=== PATIENT | female | born 1950 | race Caucasian/White ===

== ENCOUNTER 2016-11-21 10:14 | Outpatient (CLI) | payer MEDICARE, BC | END 2016-11-21 10:15 | disposition home or self-care (01) | DX: M19.072 Primary osteoarthritis, left ankle and foot (principal) ==

== ENCOUNTER 2018-04-09 09:47 | Outpatient (CLI) | payer MEDICARE, BC ==
--- NOTE | 2018-04-09 11:08 | XRAY Report ---
Reason: PAIN HX TRAUMA Procedure Date: 04/09/2018 Accession Number: [id number] / [id number] Procedure: XR - Foot 3 View LT CPT Code: FULL RESULT: EXAM: LEFT FOOT RADIOGRAPHY EXAM DATE: 04/09/2018 10:32 AM. CLINICAL HISTORY: Pain, history of trauma. COMPARISON: FOOT 3 VIEW LT 11/21/2016 10:28 AM. TECHNIQUE: 3 views. FINDINGS: Stable appearance of the fifth ray status post fifth transmetatarsal amputation. No fracture or dislocation is identified. Mild posterior and inferior calcaneal enthesopathy is again seen. Mild midfoot degenerative changes have not significantly changed compared to 2014. IMPRESSION: No fracture or dislocation. RADIA
== END 2018-04-09 09:48 | disposition home or self-care (01) ==
LOC: DI 09:47
PROVIDERS: ATTEND Physician Assistant
DX: M79.672 Pain in left foot (principal)

== ENCOUNTER 2018-08-28 08:04 | Outpatient (CLI) | payer MEDICARE, BC | END 2018-08-28 08:05 | disposition home or self-care (01) | LOC: DI 08:04 | PROVIDERS: ATTEND Physician Assistant | DX: Z01.810 Encounter for preprocedural cardiovascular examination (principal); R01.1 Cardiac murmur, unspecified; I51.7 Cardiomegaly | CPT/HCPCS: 93005; 93306 ==

== ENCOUNTER 2018-11-14 20:54 | Outpatient (CLI) | payer MEDICARE, BC | END 2018-11-14 20:55 | disposition EMS.NT | LOC: EMS 20:54 | PROVIDERS: ATTEND Surgery | DX: R44.8 Other symptoms and signs involving general sensations and perceptions (principal) ==

== ENCOUNTER 2019-04-03 08:24 | Outpatient (CLI) | payer MEDICARE, BC ==
--- NOTE | 2019-04-03 11:02 | XRAY Report ---
Reason: PAINFUL L FOOT AND 2ND MP JOINT Procedure Date: 04/03/2019 Accession Number: [id number] / [id number] Procedure: XR - Foot 3 View LT CPT Code: FULL RESULT: EXAM: LEFT FOOT RADIOGRAPHY EXAM DATE: 04/03/2019 08:43 AM. CLINICAL HISTORY: Painful left foot and 2nd MP joint. COMPARISON: FOOT 3 VIEW LT 04/09/2018. TECHNIQUE: 3 views. FINDINGS: Bones: Previous amputation of the fifth ray distal to the distal diaphysis of the fifth metatarsal. Stable appearance of the remnant bone. No acute bony processes detected, including the second metatarsophalangeal articulation. Joints: Stable mild to moderate narrowing of the articulations of the mid foot, and the first metatarsophalangeal articulation. Soft Tissues: Normal. No soft tissue swelling. No subcutaneous radiopaque foreign bodies. IMPRESSION: No acute bony processes identified. RADIA
== END 2019-04-03 08:25 | disposition home or self-care (01) ==
LOC: DI 08:24
PROVIDERS: ATTEND Podiatrist
DX: M79.672 Pain in left foot (principal)

== ENCOUNTER 2020-03-03 08:46 | Outpatient (CLI) | payer MEDICARE, BC ==
--- NOTE | 2020-03-03 09:15 | XRAY Report ---
PROCEDURE: Hip w/Pelvis 2-3V LT INDICATIONS: PAIN IN LEFT HIP TECHNIQUE: AP pelvis with lateral view(s) of the bilateral hip(s). COMPARISON: None. FINDINGS: Bones: No fractures or dislocations. Pelvic ring appears intact. No suspicious bony lesions. Ther e is symmetric moderate degenerative joint disease in hips and sacroiliac joints bilaterally. Soft tissues: The visualized bowel gas pattern is normal. Vascular calcifications consistent with at herosclerosis.. IMPRESSION: 1. No fracture or dislocation. 2. 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 Reviewed by: Mirna Bear MD on 03/03/2020 9:14 AM PDT Approved by: Mirna Bear MD on 03/03/2020 9:14 AM PDT Station ID: [id number]
== END 2020-03-03 08:47 | disposition home or self-care (01) ==
LOC: DI.S 08:46
PROVIDERS: ATTEND Nurse Practitioner Family
DX: M16.0 Bilateral primary osteoarthritis of hip (principal); M47.818 Spondylosis without myelopathy or radiculopathy, sacral and sacrococcygeal region

== ENCOUNTER 2022-04-15 23:54 | Outpatient (CLI) | payer MEDICARE, BC | END 2022-04-15 23:55 | disposition EMS.NT | LOC: EMS 23:54 | DX: M54.50 Low back pain, unspecified (principal); M79.672 Pain in left foot; M79.671 Pain in right foot; I10 Essential (primary) hypertension ==

== ENCOUNTER 2022-05-04 14:56 | Outpatient (CLI) | payer MEDICARE, BC ==
--- NOTE | 2022-05-04 17:27 | XRAY Report ---
PROCEDURE: Foot 3 View LT INDICATIONS: ANKLE/FOOT XRAY TECHNIQUE: 3 views of the foot were acquired. COMPARISON: Same day left ankle radiographs. Left foot radiographs 04/03/2019. FINDINGS: Bones: Prior distal radial resection of the fifth digit. No fractures or dislocations. Moderate degen erative change. Small calcaneal spurs. No suspicious bony lesions. Soft tissues: No tibiotalar joint effusion. Achilles tendon appears normal. IMPRESSION: No fracture identified. Reviewed by: Jack Reyes MD on 05/04/2022 5:26 PM PDT Approved by: Jack Reyes MD on 05/04/2022 5:26 PM PDT Station ID: [id number]
--- NOTE | 2022-05-04 17:28 | XRAY Report ---
PROCEDURE: Ankle 3 View LT INDICATIONS: Left Ankle Pain TECHNIQUE: 3 views of the ankle were acquired. COMPARISON: Same day left foot radiographs. FINDINGS: Bones: No fractures or dislocations. Ankle mortise is normally aligned. No suspicious bony lesions . Small calcaneal spurs. Soft tissues: No tibiotalar joint effusion. Achilles tendon appears normal. IMPRESSION: No fracture identified. Consider follow-up radiographs in 10-14 days. Reviewed by: Jack Reyes MD on 05/04/2022 5:26 PM PDT Approved by: Jack Reyes MD on 05/04/2022 5:26 PM PDT Station ID: [id number]
== END 2022-05-04 14:57 | disposition home or self-care (01) ==
LOC: DI 14:56
PROVIDERS: ATTEND Podiatrist
DX: M79.672 Pain in left foot (principal); M25.572 Pain in left ankle and joints of left foot

== ENCOUNTER 2022-05-13 19:54 | Outpatient (CLI) | payer MEDICARE, BC | END 2022-05-13 19:55 | disposition critical access hospital (66) | LOC: EMS 19:54 | DX: M54.50 Low back pain, unspecified (principal); W11.XXXA Fall on and from ladder, initial encounter; Y92.009 Unspecified place in unspecified non-institutional (private) residence as the place of occurrence of the external cause; R42 Dizziness and giddiness; I10 Essential (primary) hypertension; M79.671 Pain in right foot; R00.2 Palpitations; R26.81 Unsteadiness on feet | CPT/HCPCS: A0425; A0429 ==

== ENCOUNTER 2022-05-13 21:00 | Emergency (ER) | payer MEDICARE, BC ==
--- NOTE | 2022-05-13 21:01 | ED Physician Documentation ---
History of Present Illness - Stated complaint Stated Complaint: GLF/BACK PX - History obtained from History obtained from: Patient, EMS - History of Present Illness Timing: Chronic Pain level now: 7 Improved by: rest Worsened by: ambulation - Additonal information Additional information: BIBA. Patient c/o exacerbation of her chronic low back pain since slipping off a step-stool this afternoon around 4 PM. She did not hit her head, did not lose consciousness. She also c/o exacerbation of chronic right foot pain (she is minerva eduled for MRI of the foot tomorrow). Also c/o pounding palpitations all day as well as generalized headache. She says she took her last hydrocodone "about twenty four to forty-eight hours ago". She says she gets regular prescriptions for hydrocodone from her PMD but that the last time she was given the rx, her PMD told her she was no longer going to prescribe it. When I ask patient why this was stopped, patient does not give a clear explanation as far as I can understand. She tells me "she wouldn't listen to me". Review of Systems Constitutional: reports: Reviewed and negative Cardiac: reports: Palpitations. denies: Chest pain / pressure, Pedal edema Respiratory: reports: Reviewed and negative GI: reports: Reviewed and negative : denies: Dysuria Musculoskeletal: reports: Back pain, Extremity pain (right foot), Joint pain (right ankle). denies: Neck pain Neurologic: reports: Headache PD PAST MEDICAL HISTORY - Past Medical History Past Medical History: Yes Cardiovascular: Hypertension Neuro: Seizure disorder Endocrine/Autoimmune: HyPOthyroidism Musculoskeletal: Chronic back pain - Present Medications Home Medications: Ambulatory Orders Medication Instructions Recorded Confirmed Lamotrigine 400 mg PO BID 02/20/13 05/13/22 Levothyroxine [Synthroid] 150 mcg PO QDAC 02/20/13 05/13/22 Triamterene/Hydrochlorothiazid 1 each PO DAILY 02/20/13 05/13/22 [Triamterene-Hctz 37.5-25 mg Tb] Hydrocodone/Acetaminophen 1 each PO BID PRN 05/21/15 05/13/22 [Hydrocodon-Acetaminophen 5-325] Naproxen Sodium [Aleve] 220 mg PO DAILY PRN 05/21/15 05/13/22 HYDROcod/ACETAM 5/325 [Industry 5/325] 1 tablet PO BID #12 tablet 05/13/22 - Allergies Allergies/Adverse Reactions: Allergies Allergy/AdvReac Type Severity Reaction Status Date / Time Sulfa (Sulfonamide Allergy Itching Verified 04/12/16 11:25 Antibiotics) - Living Situation Living Situation: reports: Alone Living Arrangement: reports: At home PD ED PE NORMAL - Vitals Vital signs reviewed: Yes - General General: Alert and oriented X 3, No acute distress, Well developed/nourished - HEENT HEENT: PERRL, EOMI, Moist mucous membranes - Cardiac Cardiac: RRR - Respiratory Respiratory: No respiratory distress, Clear bilaterally - Abdomen Abdomen: Soft, Non tender - Derm Derm: Normal color, Warm and dry - Extremities Extremities: No edema - Neuro Neuro: Alert and oriented X 3, 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, No motor deficit, No sensory deficit, Normal speech Eye Opening: Spontaneous Motor: Obeys Commands Verbal: Oriented GCS Score: 15 PD ED PE EXPANDED - Cardiac Cardiac: Murmur Present (2/6 PHILL greatest at right second intercostal space) Results - Vitals Vitals: Vital Signs - 24 hr 05/13/22 05/13/22 05/13/22 21:15 21:27 22:19 Temperature 36.5 C Heart Rate 58 L 62 Respiratory 18 16 16 Rate Blood Pressure 208/76 H 208/76 H O2 Saturation 98 98 05/13/22 05/13/22 05/13/22 22:40 23:19 23:50 Temperature 36.4 C L Heart Rate 51 L 57 L 58 L Respiratory 18 16 16 Rate Blood Pressure 189/77 H 198/92 H 179/78 H O2 Saturation 99 99 97 Oxygen O2 Source Room air - EKG (time done) No standard instances Rate: Rate (enter#) (77) Rhythm: NSR [place]: LAD Intervals: Prolonged QT (borderline) QRS: LVH Ischemia: Normal ST segments Other comments: Other comments (no PVCs) - Labs Labs: Laboratory Tests 05/13/22 05/13/22 21:24 21:24 WBC 5.2 RBC 4.25 Hgb 12.3 Hct 38.5 MCV 90.6 MCH 28.9 MCHC 31.9 L RDW 12.6 Plt Count 233 MPV 9.0 Neut # (Auto) 2.9 Lymph # (Auto) 1.5 Kimball # (Auto) 0.6 Eos # (Auto) 0.1 Baso # (Auto) 0.0 Absolute Nucleated RBC 0.00 Nucleated RBC % 0.0 Sodium 137 Potassium 3.4 L Chloride 100 L Carbon Dioxide 28 Anion Gap 9.0 BUN 21 H Creatinine 0.9 Estimated GFR (MDRD) 62 L Glucose 109 H Calcium 9.3 Total Bilirubin 0.5 AST 27 ALT 14 Alkaline Phosphatase 67 Total Protein 6.7 Albumin 4.3 Globulin 2.4 Albumin/Globulin Ratio 1.8 Lipase 34 PD MEDICAL DECISION MAKING - ED course Complexity details: reviewed old records, reviewed results, re-evaluated patient, considered differential, d/w patient ED course: BIBA c/o exacerbation of chronic low back pain. She says she fell off a step stool earlier today and she thinks this might have exacerbated the pain. However, in further discussion, she indicates the pain is not new nor worse but that she is out of vicodin as of 1-2 days ago. She says her prescribing physician recently decreased her dose of vicodin but patient says she was not having adequate relief with this new, lower dosage and was thus often taking an extra one-half to one tablet more (on most days) than the currently prescribed dosing and this is why she ran out early. Basic blood tests and an EKG undertaken and there are no remarkable findings on these tests. I explained at length to patient that I would provide a short course of vicodin to help bridge until she can speak with her prescribing practitioner, but that further such prescriptions must be through her prescribing practitioner. I am prescribing a short course of short-acting opioid pain medication for this patient. I have reviewed the patients PACKAGING SPECIALIST. As patient has indicated to me, she appears to have run out of the hydrocodone/acetaminophen early. I do not see any previous ED visits for early refills (and her last [facility] ED visit was 2012). I explained to her that the vicodin given tonight , as well as a short course (12 tablets) provided via rx, are only meant as a bridge until she can talk with her prescribing physician regarding pain control options and that in the future the ED cannot provide such medications if the patient is out of medications early due to taking more than the prescribed amount. I have discussed that the opioids are for short term therapy only, and will not be refilled from the ED Departure - Departure Disposition: 01 Home, Self Care Clinical Impression: Chronic pain Qualifiers: Chronic pain type: other chronic pain Qualified Code(s): G89.29 - Other chronic pain Condition: Good Instructions: ED Chronic Pain Management, ED Neck Back Pain General Prescriptions: HYDROcod/ACETAM 5/325 [Industry 5/325] 1 tablet PO BID #12 tablet Comments: A prescription for hydrocodone/acetaminophen has been electronically submitted to [facility] pharmacy in [place]. As we discussed, further prescriptions for controlled substances (such as narcotic/opiate prescription medications) need to be provided by your primary care provider for chronic problems. Contact your primary care provider's office on Monday to arrange for immediate follow up. I am prescribing a short course of narcotic pain medication for you. These are potentially dangerous and addictive medications that should be used carefully. These medications may constipate you. Take an rcpv-kvg-yqshcsi stool softener (docusate) twice daily with plenty of water while taking these medications. If you go 24 hours without a bowel movement, take kaaa-xbb-ibvbigt miralax, per package instructions. Do not drink or drive while taking these medications. If you received narcotic or sedating medications while in the emergency department, do not drive for 24 hours. Store this medication in a safe, secure place and out of reach of children. It is a violation of federal law to give or sell this medication to another person or to use in a manner other than prescribed. The ED will not refill narcotic prescriptions, including prescriptions lost or stolen. To dispose of unwanted medications: 1. [facility] at [address] in [place] has a medication drop box. They accept prescription medications (in pill form) Monday through Monday 9:00 a.m. to 5:00 p.m. 2. The [facility] [employer] accepts prescription medications (in pill form only) for disposal year round. Call for more information. 3. Contact the [facility] for the next [facility] sponsored prescription drug collection event. , [phone], or [phone]; Discharge Date/Time: 05/13/22 23:55
[2022-05-13] MEDS ORDERED: HYDROcod/ACETAM 5/325 MG TABLET PO STA ×2 (21:19→23:32)
[2022-05-13 21:31] LABS: BASOPHILS % (AUTO) 0.4 %; EOSINOPHILS # (AUTO) 0.1 10^3/uL (0.0-0.7); EOSINOPHILS % (AUTO) 2.7 %; HCT - HEMATOCRIT 38.5 % (37.0-47.0); HGB - HEMOGLOBIN 12.3 g/dL (12.0-16.0); LYMPHOCYTES # (AUTO) 1.5 10^3/uL (1.5-3.5); LYMPHOCYTES % (AUTO) 29.3 %; MEAN CORPUSCULAR HEMOGLOBIN 28.9 pg (27.0-31.0); MEAN CORPUSCULAR HGB CONC 31.9 g/dL (32.0-36.0); MEAN CORPUSCULAR VOLUME 90.6 fL (81.0-99.0); MONOCYTES # (AUTO) 0.6 10^3/uL (0.0-1.0); MONOCYTES % (AUTO) 11.6 %; NEUTROPHILS # (AUTO) 2.9 10^3/uL (1.5-6.6); NEUTROPHILS % (AUTO) 55.8 %; PLT - PLATELET COUNT 233 10^3/uL (130-450); RED BLOOD COUNT 4.25 10^6/uL (4.20-5.40); RED CELL DISTRIBUTION WIDTH 12.6 % (12.0-15.0); WHITE BLOOD COUNT 5.2 x10^3/uL (4.8-10.8)
[2022-05-13 21:45] LABS: ALBUMIN 4.3 g/dL (3.2-5.5); ALBUMIN/GLOBULIN RATIO 1.8 (1.0-2.2); BILIRUBIN,TOTAL 0.5 mg/dL (0.2-1.0); CALCIUM 9.3 mg/dL (8.5-10.3); CREATININE 0.9 mg/dL (0.4-1.0); POTASSIUM 3.4 mmol/L (3.5-5.0); TOTAL PROTEIN 6.7 g/dL (6.7-8.2)
--- OUTSIDE RECORDS SUMMARY | 2022-05-13 22:02 | EXTERNAL MEDICAL SUMMARY RPT | Continuity of Care Document ---
:1950 Author Organization [facility] Address [address] [place] [address] Phone Care Team Providers Name Role Phone Unavailable Unavailable Unavailable Jp Greenberg Md Unavailable Unavailable Allergies No information. Encounters No information. Functional Status No information. Immunizations No information. Medications date description facility [id number]+0000 LAMOTRIGINE [facility] faisal [phone]+0000 lamotrigine [facility] fa[facility] [phone]+0000 lamotrigine [facility] fa[facility] [id number]+0000 LAMOTRIGINE [facility] fa[facility]al [phone]+0000 triamterene-hydrochlorothiazid [facility] [phone]+0000 triamterene-hydrochlorothiazid [facility] [phone]+0000 prednisone [facility] [phone]+0000 amoxicillin-pot clavulanate Walk-In [facility] C fa[facility]al [phone]+0000 amoxicillin-pot clavulanate Walk-In C [facility] C faisal [phone]+0000 amoxicillin-pot clavulanate Walk-In C [facility] C fa[facility] [phone]+0000 LAMOTRIGINE [facility] fa[facility] [phone]+0000 lamotrigine [facility] fa[facility] [phone]+0000 lamotrigine [facility] fa[facility] [phone]+0000 LAMOTRIGINE [facility] fa[facility]al [phone]+0000 MAGNESIUM [facility] fa[facility]al [phone]+0000 prednisone [facility] fa[facility] [phone]+0000 prednisone [facility] fa[facility]al [phone]+0000 triamterene-hydrochlorothiazid [facility] [phone]+0000 triamterene-hydrochlorothiazid [facility] fa[facility] [phone]+0000 triamterene-hydrochlorothiazid [facility] fa[facility] [phone]+0000 PREDNISONE [facility] fa[facility] [phone]+0000 prednisone [facility] fa[facility] [phone]+0000 MAGNESIUM [facility] fa[facility]al [phone]+0000 triamterene-hydrochlorothiazid [facility] [phone]+0000 LAMOTRIGINE [facility] C faisal [phone]+0000 lamotrigine [facility] C faisal [phone]+0000 LAMOTRIGINE [facility] C fa[facility]al [phone]+0000 amoxicillin-pot clavulanate Walk-In C [facility] C faisal [phone]+0000 amoxicillin-pot clavulanate Walk-In C [facility] C faisal [phone]+0000 LAMOTRIGINE [facility] C faisal [phone]+0000 lamotrigine [facility] C faisal [phone]+0000 LAMOTRIGINE [facility] C faisal [phone]+0000 amoxicillin-pot clavulanate Walk-In C [facility] C faisal [phone]+0000 MAGNESIUM [facility] C faisal +0000 colchicine [facility] C faisal Problems No information. Procedures date description facility +0000 Visit Code Hold [facility] [place] +0000 Visit Code Hold [facility] +0000 Visit Code Hold [facility] Results/Labs No information. Social History date description facility +0000 Former smoker [facility] +0000 Former smoker [facility] +0000 Former smoker [facility] Vital Signs date measurement value units +0000 BMI BMI 25.03 kg/m2 +0000 BP_diastolic BP_diastolic 85 mm[H g] +0000 BP_systolic BP_systolic 159 mm[Hg] +0000 heart_rate heart_rate 60 /min +0000 height_metric height_metric 172.72 cm +0000 height_standard height_standard 68 in +0000 respiration_rate respiration_rate 16 /min +0000 temperature_metri temperature_metri 36.11 C c c +0000 temperature_stand temperature_stand 97 F dian dian +0000 weight_metric weight_metric 74.39 kg +0000 weight_standard weight_standard 164 lb +0000 BMI BMI 40.13 kg/m2 +0000 BP_diastolic BP_diastolic 77 mmHg +0000 BP_diastolic BP_diastolic 81 mmHg +0000 BP_systolic BP_systolic 173 mmHg +0000 BP_systolic BP_systolic 202 mmHg +0000 heart_rate heart_rate 55|| comple janis +0000 heart_rate heart_rate 56 /min +0000 height_metric height_metric 172.72 cm +0000 height_standard height_standard 68 in +0000 respiration_rate respiration_rate 16 (units unknown) +0000 respiration_rate respiration_rate 16 /min +0000 temperature_metri temperature_metri 36.11 C c c +0000 temperature_stand temperature_stand 97 F dian dian +0000 weight_metric weight_metric 119.29 kg +0000 weight_standard weight_standard 263 lb"
[2022-05-13 23:55] VITALS: BP 179/78
== END 2022-05-13 23:55 | disposition home or self-care (01) ==
LOC: EDUNIT# → ED 21:00
DX: M54.50 Low back pain, unspecified (principal); G89.29 Other chronic pain
CPT/HCPCS: 36415; 80053; 83690; 85025; 93005; 99283; 99284; A9270

== ENCOUNTER 2022-05-14 16:10 | Emergency (ER) | payer MEDICARE, BC ==
[2022-05-14 16:20] VITALS: BP 201/83
[2022-05-14] MEDS ORDERED: KETOROLAC 30 MG/ML VIAL IM STA (16:32)
[2022-05-14] MEDS ORDERED: LIDOCAINE PATCH 5% TOP STA (16:32)
--- NOTE | 2022-05-14 16:39 | ED Physician Documentation ---
History of Present Illness - Stated complaint Stated Complaint: FALL - Chief complaint Chief Complaint: Back Pain - History obtained from History obtained from: Patient - Additonal information Additional information: Patient is a 71-year-old female who presents to the emergency department stating she was seen here last night for back pain after a fall. Has chronic back pain. Her prescription was sent to [facility] in [place]. She states that it was unable to be filled today so came here for pain management. No numbness or tingling. No loss of bowel or bladder control. No changes in her symptoms from last night. Review of Systems Constitutional: denies: Fever, Chills GI: denies: Nausea, Vomiting, Diarrhea Skin: denies: Rash Neurologic: denies: Focal weakness, Numbness PD PAST MEDICAL HISTORY - Past Medical History Cardiovascular: Hypertension Respiratory: None Neuro: Seizure disorder Endocrine/Autoimmune: HyPOthyroidism GI: GERD, Chronic constipation GENERAL OFFICE WORKER: None : Other HEENT: None Psych: Depression Musculoskeletal: Chronic back pain Derm: None - Past Surgical History Past Surgical History: Yes General: Cholecystectomy Ortho: Arthroscopic surgery /GENERAL OFFICE WORKER: Hysterectomy Neuro: Other HEENT: Tonsil/Adenoidectomy - Present Medications Home Medications: Ambulatory Orders Medication Instructions Recorded Confirmed Lamotrigine 400 mg PO BID 02/20/13 05/13/22 Levothyroxine [Synthroid] 150 mcg PO QDAC 02/20/13 05/13/22 Triamterene/Hydrochlorothiazid 1 each PO DAILY 02/20/13 05/13/22 [Triamterene-Hctz 37.5-25 mg Tb] Hydrocodone/Acetaminophen 1 each PO BID PRN 05/21/15 05/13/22 [Hydrocodon-Acetaminophen 5-325] Naproxen Sodium [Aleve] 220 mg PO DAILY PRN 05/21/15 05/13/22 HYDROcod/ACETAM 5/325 [Canyon 5/325] 1 tablet PO BID #12 tablet 05/13/22 - Allergies Allergies/Adverse Reactions: Allergies Allergy/AdvReac Type Severity Reaction Status Date / Time Sulfa (Sulfonamide Allergy Itching Verified 05/14/22 16:20 Antibiotics) - Social History Does the pt smoke?: No Smoking Status: Never smoker Does the pt drink ETOH?: No Does the pt have substance abuse?: No - Immunizations Immunizations are current?: No - POLST Patient has POLST: No PD ED PE NORMAL - Vitals Vital signs reviewed: Yes - General General: Alert and oriented X 3, No acute distress, Well developed/nourished - HEENT HEENT: Moist mucous membranes - Neck Neck: Supple, no meningeal sign - Cardiac Cardiac: RRR, Strong equal pulses - Respiratory Respiratory: No respiratory distress, Clear bilaterally - Abdomen Abdomen: Soft, Non tender, Non distended - Back Back: No spinal TTP, Other (No midline tenderness to palpation. No step-off or deformity.) - Derm Derm: Warm and dry - Extremities Extremities: No calf tenderness / cord - Neuro Neuro: Alert and oriented X 3, No motor deficit, No sensory deficit, Other (Normal bilateral lower extremity patellar and ankle jerk reflexes. Normal great toe extension bilaterally. no saddle anesthesia) - Psych Psych: Normal mood, Normal affect Results - Vitals Vitals: Vital Signs - 24 hr 05/14/22 05/14/22 16:17 16:48 Temperature 36.4 C L 36.4 C L Heart Rate 61 61 Respiratory 18 18 Rate Blood Pressure 201/83 H 201/83 H O2 Saturation 98 98 Oxygen O2 Source Room air PD MEDICAL DECISION MAKING - ED course Complexity details: reviewed old records, considered differential (No cauda equina, no spinal epidural abscess, no fracture, no aortic dissection or evidence of aneursym rupture), d/w patient ED course: Patient is here requesting in narcotics for her back pain. A narcotic pre scription was sent last night, she states she was unable to pick it up today because of the weather. Offered to send it to a pharmacy that is open. Patient refuses this. Patient was informed that we are not allowed to dispense prepacks of narcotic pain medication while pharmacies are open. She request that I just give her a dose that she can take home with her, I explained to her that this would be dispensing the medication. She then request that I just give the medication to her and she can take it and drive home because it "will not kick in for over an hour". I also informed her that this is not an acceptable solution. Offered Toradol and Lidoderm patch. Patient accepts this. Patient will mushroom picker her prescription tomorrow. This document was made in part using voice recognition software. While efforts are made to proofread this document, sound alike and grammatical errors may occur. Departure - Departure Disposition: Home, Self Care Clinical Impression: Back pain Qualifiers: Back pain location: low back pain Chronicity: chronic Back pain laterality: unspecified Sciatica presence: without sciatica Qualified Code(s): M54.50 - Low back pain, unspecified Condition: Good Instructions: ED Neck Back Pain General Follow-Up: your,doctor on Monday [Other] Comments: As we have discussed, [place] law prevents us from dispensing medications to patients while pharmacies are open in the region. We also cannot dispense narcotic medication for you to take later at home without violating this law. I have offered to change your prescription to a different pharmacy in [place], but you have declined this. Please follow-up with your doctor for further care. Discharge Date/Time: 05/14/22 16:48
--- OUTSIDE RECORDS SUMMARY | 2022-05-14 16:49 | EXTERNAL MEDICAL SUMMARY RPT | Continuity of Care Document ---
:1950 Author Organization [facility] Address [address] [place] [address] Phone Care Team Providers Name Role Phone Unavailable Unavailable Unavailable Jp Greenberg Md Unavailable Unavailable Allergies No information. Encounters No information. Functional Status No information. Immunizations No information. Medications date description facility [id number]+0000 L[facility]OTRIGINE [facility] [phone]+0000 lamotrigine [facility] [phone]+0000 lamotrigine [facility] [place] [phone]+0000 [facility]OTRIGINE [facility] [phone]+0000 triamterene-hydrochlorothiazid [facility] [place] [phone]+0000 triamterene-hydrochlorothiazid [facility] [place] [phone]+0000 prednisone [facility] [place] [phone]+0000 amoxicillin-pot clavulanate [facility] [place] [phone]+0000 amoxicillin-pot clavulanate [facility] [place] [phone]+0000 amoxicillin-pot clavulanate [facility] [place] [phone]+0000 [facility]OTRIGINE [facility] [place] [phone]+0000 lamotrigine [facility] [phone]+0000 lamotrigine [facility] [place] [phone]+0000 LAMOTRIGINE [facility] [place] [phone]+0000 MAGNESIUM [facility] [phone]+0000 prednisone [facility] [place] [phone]+0000 prednisone [facility] [place] [phone]+0000 triamterene-hydrochlorothiazid [facility] [place] [phone]+0000 triamterene-hydrochlorothiazid [facility] [place] [phone]+0000 triamterene-hydrochlorothiazid [facility] [place] [phone]+0000 PREDNISONE [facility] [place] [phone]+0000 prednisone [facility] [place] [phone]+0000 MAGNESIUM [facility] [place] [phone]+0000 triamterene-hydrochlorothiazid [facility] [place] [phone]+0000 LAMOTRIGINE [facility] [place] [phone]+0000 lamotrigine [facility] [place] [phone]+0000 LAMOTRIGINE [facility] [place] [phone]+0000 amoxicillin-pot clavulanate [facility] [phone]+0000 amoxicillin-pot clavulanate [facility] [phone]+0000 LAMOTRIGINE [facility] [place] [phone]+0000 lamotrigine [facility] [place] [phone]+0000 LAMOTRIGINE [facility] [place] [phone]+0000 amoxicillin-pot clavulanate [facility] [phone]+0000 MAGNESIUM [facility] +0000 colchicine [facility] Problems No information. Procedures date description facility +0000 Visit Code Hold [facility] [place] +0000 Visit Code Hold [facility] [place] +0000 Visit Code Hold [facility] [place] Results/Labs No information. Social History date description facility +0000 Former smoker [facility] [place] +0000 Former smoker [facility] [place] +0000 Former smoker [facility] [place] Vital Signs date measurement value units +0000 [...]
== END 2022-05-14 16:48 | disposition home or self-care (01) ==
LOC: ED 16:10
DX: M54.50 Low back pain, unspecified (principal)
CPT/HCPCS: 96372; 99282; 99283; A9270

== ENCOUNTER 2022-05-31 07:45 | Outpatient (CLI) | payer MEDICARE, BC ==
--- NOTE | 2022-05-31 13:36 | MRI Report ---
PROCEDURE: FOOT WO - LT INDICATIONS: LEFT FOOT PAIN TECHNIQUE: Noncontrast sagittal T1 spin echo and T2 fast spin echo with fat saturation, long-axis T1 spin echo a nd STIR, short-axis T1 spin echo and T2 fast spin echo with fat saturation through the forefoot. COMPARISON: Left foot and ankle radiographs 05/04/2022 FINDINGS: Image quality: Excellent. Bones and joints: Osseous edema is seen within the proximal portions of the second and third metatar sals and to a lesser extent the surrounding osseous structures. There is a minimally displaced obliqu e intra-articular fracture at the plantar aspect of the second metatarsal extending into the tarsomet atarsal joint. Additional small minimally displaced fracture is seen at the third metatarsal base. So me of the fracture margins appear to be corticated, and findings may be subacute to chronic. Chronic postsurgical changes are seen from remote prior amputation of the fifth ray at the level of t he distal metatarsal. Mild to moderate degenerative changes are seen at the first metatarsophalangeal joint and there are mild degenerative changes throughout the interphalangeal joints of the toes. Mod erate to severe degenerative changes are seen at the naviculocuneiform articulations. Soft tissues: Soft tissue edema is seen surrounding the proximal second and third metatarsals. There is mild fatty infiltration of the intrinsic foot musculature that is most likely related to chronic denervation changes. Visualized flexor and extensor tendons appear intact, without tenosynovitis. Sa gittal images demonstrate no evidence for plantar plate tears. The more plantar aspect of the [place] ligament is continuous with the second metatarsal base fracture fragment. The more superior portio ns of the Lisfranc ligament are also visualized and may be partially torn. No widening of the first i ntermetatarsal distance is seen. IMPRESSION: 1.Minimally displaced intra-articular fractures of the plantar aspect of the second and third metatar rafia bases extending into the tarsometatarsal joints. There is associated osseous and soft tissue kanwal a. 2.Possible grade 1-2 sprain/partial tearing of the Lisfranc ligament. No widening of the first interm etatarsal distance is seen. 3.Scattered degenerative changes in the midfoot and forefoot are most prominent at the naviculocuneif orm articulations. Reviewed by: Chris Chavarria MD on 05/31/2022 1:35 PM PST Approved by: Chris Chavarria MD on 05/31/2022 1:35 PM PST Station ID: [id number]
== END 2022-05-31 07:46 | disposition home or self-care (01) ==
LOC: DI 07:45
PROVIDERS: ATTEND Podiatrist
DX: S92.322A Displaced fracture of second metatarsal bone, left foot, initial encounter for closed fracture (principal); S92.332A Displaced fracture of third metatarsal bone, left foot, initial encounter for closed fracture; M19.072 Primary osteoarthritis, left ankle and foot

== ENCOUNTER 2022-08-18 07:21 | Day surgery (SDC) | payer MEDICARE, BC ==
--- NOTE | 2022-08-18 06:54 | ANESTHESIA ---
Pre-Anesthesia VS, & Labs - Diagnosis R senile combined cataract - Procedure R extraction cataract with IOL Height: 5 ft 7 in - NPO >8 hours - Is Patient ?: No - Lab Results Lab results reviewed: Yes Home Medications and Allergies Lamotrigine 400 mg PO BID 02/20/13 Levothyroxine [Synthroid] 150 mcg PO QDAC 02/20/13 Triamterene/Hydrochlorothiazid [Triamterene-Hctz 37.5-25 mg Tb] 1 each PO DAILY 02/20/13 Allergies/Adverse Reactions: Allergies Allergy/AdvReac Type Severity Reaction Status Date / Time Sulfa (Sulfonamide Allergy Itching Verified 05/14/22 16:20 Antibiotics) Anes History & Medical History - Anesthetic History Anesthesia Complications: reports: No previous complications Family history of Anesthesia Complications: Denies Family history of Malignant Hyperthermia: Denies - Medical History Cardiovascular: reports: Hypertension Pulmonary: reports: None Gastrointestinal: reports: Cholelithiasis Urinary: reports: Chronic bladder infection Neuro: reports: Seizure disorder Musculoskeletal: reports: Osteoarthritis, Fibromyalgia, Chronic back pain, Other Endocrine/Autoimmune: reports: HyPOthyroidism Blood Disorders: reports: None Skin: reports: None Smoking Status: Never smoker - Surgical History General: reports: Cholecystectomy Eyes Ears Nose Throat (EENT): reports: Other Gynecologic: reports: Hysterectomy Neurologic: reports: Other Orthopedic: reports: Knee replacement, Spine surgery Exam General: Alert, Oriented x3, Cooperative Dental: WNL Mouth Openin Fingerbreadth Neck Mobility: Normal Mallampati classification: II Thyromental Distance: 4-6 cm Respiratory: Lungs clear, Normal breath sounds Cardiovascular: Regular rate Neurological: Normal speech Mental/Cognitive Status: Alert/Oriented X3, Normal for patient Cognitive Status: Within normal limits Plan Anesthesia Type: MAC Consent for Procedure(s) Verified and Reviewed: Yes Code Status: Attempt Resuscitation ASA classification: 2-Mild systemic disease Is this case an emergency?: No
[~2022-08-18 07:21] MED LIST: CYCLOPENTOLATE 1% OPHTH DROPS 2 ML ONE; KETOROLAC 0.45% OPHTH DROPS ONE; PHENYLEPHRINE 2.5% OPHTH 2 ML DROPS ONE; PROPARACAINE 0.5% OPHTH DROPS 15 ML ONE
[2022-08-18] MEDS ORDERED: LACTATED RINGERS 1,000 ML IV ONE ×2 (07:59→08:24)
[2022-08-18] MEDS ORDERED: MIDAZOLAM 2 MG/2 ML VIAL ONE (08:15)
[2022-08-18] MEDS ORDERED: TIMOLOL 0.5% OPHTH DROPS ONE (08:16)
[2022-08-18] MEDS ORDERED: BRIMONIDINE 0.2% OPHTH DROPS 5 ML ONE (08:16)
[2022-08-18] MEDS ORDERED: TRIAMCIN/MOXIFLOX OPHTHALMIC 0.6 ML VIAL IO ONE ×2 (08:16→08:46)
[2022-08-18] MEDS ORDERED: EPINEPHrine 1 MG/ML AMP ONE (08:16)
[2022-08-18] MEDS ORDERED: VANCOMYCIN OPHTH (TOPICAL) 10 MG/ML SYRINGE ONE (08:17)
[2022-08-18] MEDS ORDERED: BSS/LIDOCAINE/EPINEPHRINE 1 ML SYRINGE ONE (08:17)
[2022-08-18] MEDS ORDERED: GLYCOPYRROLATE 1 MG/5 ML VIAL ONE (08:41)
[2022-08-18] MEDS ORDERED: PROPARACAINE 0.5% OPHTH DROPS 15 ML RIGHTEYE ONE (08:46)
[2022-08-18] MEDS ORDERED: EPINEPHrine 1 MG/ML AMP IR ONE (08:46)
[2022-08-18] MEDS ORDERED: BSS/LIDOCAINE/EPINEPHRINE 1 ML SYRINGE IO ONE (08:46)
[2022-08-18] MEDS ORDERED: BRIMONIDINE 0.2% OPHTH DROPS 5 ML OPTH ONE (08:46)
[2022-08-18] MEDS ORDERED: TIMOLOL 0.5% OPHTH DROPS OPTH ONE (08:46)
[2022-08-18] MEDS ORDERED: VANCOMYCIN OPHTH (TOPICAL) 10 MG/ML SYRINGE TOP ONE (08:46)
--- NOTE | 2022-08-18 09:00 | OPERATIVE REPORT ---
Operative Report - Other Other Information/Narrative: Date of Surgery: 08/18/22 Preop Dx: Visually significant cataract right eye. This was the first cataract surgery. Postop Dx: Same Procedure: Phacoemulsification with posterior chamber intraocular lens implant right eye Surgeon: Dr. Jp Holland Anesthesia: Monitored anesthesia care Complications: None Operative Indications: This is a 72-year-old F with progressive vision loss in the right eye due to 2+ nuclear sclerotic and 2-3+ cortical cataract. Best corrected visual acuity was 20/40 with glare to 20/80 vision in the right eye. Indications for surgery were: - Overall decrease in vision - Difficulty seeing words on a computer screen - Difficulty reading - Difficulty seeing words, closed captions, or game scores on TV - Difficulty driving in low light or at night - Difficulty driving at night because of headlights from other vehicles - Difficulty with glare or bright lights in any situation - Decreased acuity with firearms The patient was consented at length concerning the risks and benefits of cataract surgery after which the patient expressed a desire to proceed with surgery. Operative Procedure: The patient was taken into OR#3 and placed under monitored anesthesia care. A surgical time-out was conducted confirming correct patient, correct procedure, and correct surgical site. The patient was given topical anesthesia and then prepped and draped in the usual sterile fashion. The eye was entered at the 6 and 3 oclock positions. Intracameral Shugarcaine was injected into the anterior chamber followed by a dispersive viscoelastic. A continuous-tear curvilinear capsulorhexis was performed. The nucleus was hydrodissected and phacoemulsified. The cortex was evacuated using automated infusion and aspiration. A cohesive viscoelastic was injected into the capsular bag and a 24.5 diopter intraocular lens was inserted into the bag. Infusion and aspiration were used to evacuate the viscoelastic materials from the eye. The wounds were hydrated and the eye inflated to physiologic pressure using balanced salt solution. Approximately 0.25ml of a mixture of triamcinolone and moxifloxacin was injected trans-sclerally into the vitreous in the inferotemporal quadrant using a 30 gauge cannula. An additional 0.25ml of a mixture of triamcinolone and moxifloxacin was injected subconjunctivally in the superior quadrant for infection and inflammation prophylaxis. Wound integrity was checked with Weck-Mariana sponges. The patient was taken from the operating room in good condition and given post-op instructions.
[2022-08-18 09:06] VITALS: BP 126/84
--- NOTE | 2022-08-18 09:06 | ANESTHESIA POST OP EVALUATION ---
Anesthesia Post Eval - Post Anesthesia Eval Vitals: Last Vital Signs Temp 36.6 C 08/18/22 08:54 Pulse 62 08/18/22 08:54 Resp 12 08/18/22 08:54 BP 152/56 H 08/18/22 08:54 Pulse Ox 100 08/18/22 08:54 O2 Flow Rate CV Function Including HR & BP: Stable Pain Control: Satisfactory Nausea & Vomiting: Negative Mental Status: Baseline Respiratory Status: Airway Patent Hydration Status: Satisfactory Anesthesia Complications: None
== END 2022-08-18 07:22 | disposition home or self-care (01) ==
LOC: SDS 07:21
PROVIDERS: ATTEND Ophthalmology
DX: H25.811 Combined forms of age-related cataract, right eye (principal); E03.9 Hypothyroidism, unspecified; Z87.891 Personal history of nicotine dependence
CPT/HCPCS: 66984; A9270; J3490; J7120

== ENCOUNTER 2022-11-03 07:31 | Day surgery (SDC) | payer MEDICARE, BC ==
[2022-11-03] MEDS ORDERED: LACTATED RINGERS 1,000 ML IV ONE ×2 (08:04→09:39)
[2022-11-03] MEDS ORDERED: BSS/LIDOCAINE/EPINEPHRINE 1 ML VIAL ONE (09:08)
[2022-11-03] MEDS ORDERED: BRIMONIDINE 0.2% OPHTH DROPS 5 ML ONE (09:08)
[2022-11-03] MEDS ORDERED: VANCOMYCIN OPHTH (TOPICAL) 10 MG/ML SYRINGE ONE (09:08)
[2022-11-03] MEDS ORDERED: EPINEPHrine 1 MG/ML AMP ONE (09:08)
[2022-11-03] MEDS ORDERED: TIMOLOL 0.5% OPHTH DROPS ONE (09:08)
[2022-11-03] MEDS ORDERED: TRIAMCIN/MOXIFLOX OPHTHALMIC 0.6 ML VIAL IO ONE ×2 (09:08→09:27)
--- NOTE | 2022-11-03 09:08 | ANESTHESIA ---
Pre-Anesthesia VS, & Labs - Diagnosis L cataract - Procedure L PhacoIOL Vital Signs: Temp Pulse Resp BP Pulse Ox O2 Flow Rate 36.3 C L 47 L 20 191/71 H 99 11/03/22 07:45 11/03/22 07:45 11/03/22 07:45 11/03/22 07:45 11/03/22 07:45 Height: 5 ft 3 in Weight (kg): 76.7 kg Body Mass Index: 29.9 BMI Classification: Overweight - NPO >8 hours - Is Patient ?: No Home Medications and Allergies Lamotrigine 400 mg PO BID 02/20/13 Levothyroxine [Synthroid] 150 mcg PO QDAC 02/20/13 Triamterene/Hydrochlorothiazid [Triamterene-Hctz 37.5-25 mg Tb] 1 each PO DAILY 02/20/13 Allergies/Adverse Reactions: Allergies Allergy/AdvReac Type Severity Reaction Status Date / Time Sulfa (Sulfonamide Allergy Itching Verified 05/14/22 16:20 Antibiotics) Anes History & Medical History - Anesthetic History Anesthesia Complications: reports: No previous complications Family history of Anesthesia Complications: Denies Family history of Malignant Hyperthermia: Denies - Medical History Cardiovascular: reports: Hypertension Pulmonary: reports: None Gastrointestinal: reports: Cholelithiasis Urinary: reports: Chronic bladder infection Neuro: reports: Seizure disorder Musculoskeletal: reports: Osteoarthritis, Fibromyalgia, Chronic back pain, Other Endocrine/Autoimmune: reports: HyPOthyroidism Blood Disorders: reports: None Skin: reports: None Smoking Status: Never smoker - Surgical History General: reports: Cholecystectomy Eyes Ears Nose Throat (EENT): reports: Cataracts, Other Gynecologic: reports: Hysterectomy Neurologic: reports: Other Orthopedic: reports: Knee replacement, Spine surgery Exam General: Alert, Oriented x3, Cooperative Dental: WNL Mouth Openin Fingerbreadth Neck Mobility: Normal Mallampati classification: I Thyromental Distance: 4-6 cm Respiratory: Lungs clear Cardiovascular: Regular rate Plan Anesthesia Type: MAC Consent for Procedure(s) Verified and Reviewed: Yes Code Status: Attempt Resuscitation ASA classification: 2-Mild systemic disease Is this case an emergency?: No
[2022-11-03] MEDS ORDERED: MIDAZOLAM 2 MG/2 ML VIAL ONE (09:12)
[2022-11-03] MEDS ORDERED: EPINEPHrine 1 MG/ML AMP IR ONE (09:26)
[2022-11-03] MEDS ORDERED: TIMOLOL 0.5% OPHTH DROPS OPTH ONE (09:26)
[2022-11-03] MEDS ORDERED: BRIMONIDINE 0.2% OPHTH DROPS 5 ML OPTH ONE (09:26)
[2022-11-03] MEDS ORDERED: VANCOMYCIN OPHTH (TOPICAL) 10 MG/ML SYRINGE TOP ONE (09:27)
[2022-11-03] MEDS ORDERED: BSS/LIDOCAINE/EPINEPHRINE 1 ML SYRINGE IO ONE (09:27)
[2022-11-03] MEDS ORDERED: PROPARACAINE 0.5% OPHTH DROPS 15 ML EACHEYE ONE (09:27)
--- NOTE | 2022-11-03 09:39 | OPERATIVE REPORT ---
Operative Report - Other Other Information/Narrative: Date of Surgery: 11/03/22 Preop Dx: Visually significant cataract left eye. Cataract surgery was performed in the right eye on . Postop Dx: Same Procedure: Phacoemulsification with posterior chamber intraocular lens implant left eye Surgeon: Dr. Jp Holland Anesthesia: Monitored anesthesia care Complications: None Operative Indications: This is a 72-year-old F with progressive vision loss in the left eye due to 2+ nuclear sclerotic and 1+ cortical cataract. Best corrected visual acuity was 20/25 with glare to 20/60 vision in the left eye. Indications for surgery were: - Overall decrease in vision - Difficulty seeing words on a computer screen - Difficulty reading - Difficulty seeing words, closed captions, or game scores on TV - Difficulty driving in low light or at night - Difficulty driving at night because of headlights from other vehicles - Difficulty with glare or bright lights in any situation The patient was consented at length concerning the risks and benefits of cataract surgery after which the patient expressed a desire to proceed with surgery. Operative Procedure: The patient was taken into OR#3 and placed under monitored anesthesia care. A surgical time-out was conducted confirming correct patient, correct procedure, and correct surgical site. The patient was given topical anesthesia and then prepped and draped in the usual sterile fashion. The eye was entered at the 6 and 3 oclock positions. Intracameral Shugarcaine was injected into the anterior chamber followed by a dispersive viscoelastic. A continuous-tear curvilinear capsulorhexis was performed. The nucleus was hydrodissected and phacoemulsified. The cortex was evacuated using automated infusion and aspiration. A cohesive viscoelastic was injected into the capsular bag and a 24.5 diopter intraocular lens was inserted into the bag. Infusion and aspiration were used to evacuate the viscoelastic materials from the eye. The wounds were hydrated and the eye inflated to physiologic pressure using balanced salt solution. Approximately 0.25ml of a mixture of triamcinolone and moxifloxacin was injected trans-sclerally into the vitreous in the inferotemporal quadrant using a 30 gauge cannula. An additional 0.25ml of a mixture of triamcinolone and moxifloxacin was injected subconjunctivally in the superior quadrant for infection and inflammation prophylaxis. Wound integrity was checked with Weck-Mariana sponges. The patient was taken from the operating room in good condition and given post-op instructions.
[2022-11-03 09:56] VITALS: BP 141/50
--- NOTE | 2022-11-03 16:20 | ANESTHESIA POST OP EVALUATION ---
Anesthesia Post Eval - Post Anesthesia Eval Vitals: Last Vital Signs Temp 36.0 C L 11/03/22 09:55 Pulse 48 L 11/03/22 09:55 Resp 16 11/03/22 09:55 BP 141/50 H 11/03/22 09:55 Pulse Ox 100 11/03/22 09:55 O2 Flow Rate CV Function Including HR & BP: Stable Pain Control: Satisfactory Nausea & Vomiting: Negative Mental Status: Baseline Respiratory Status: Airway Patent Hydration Status: Satisfactory Anesthesia Complications: None
== END 2022-11-03 07:32 | disposition home or self-care (01) ==
LOC: SDS 07:31
PROVIDERS: ATTEND Ophthalmology
DX: H25.812 Combined forms of age-related cataract, left eye (principal); I10 Essential (primary) hypertension; G40.909 Epilepsy, unspecified, not intractable, without status epilepticus
CPT/HCPCS: 66984; A9270; J3490; J7120

== ENCOUNTER 2022-11-23 11:24 | Outpatient (CLI) | payer MEDICARE, BC | END 2022-11-23 23:59 | disposition short-term general hospital (02) | LOC: EMS 11:24 | DX: R41.0 Disorientation, unspecified (principal); R47.81 Slurred speech; R26.9 Unspecified abnormalities of gait and mobility; R42 Dizziness and giddiness; S00.12XA Contusion of left eyelid and periocular area, initial encounter; S00.11XA Contusion of right eyelid and periocular area, initial encounter; S00.33XA Contusion of nose, initial encounter; S50.312A Abrasion of left elbow, initial encounter; S50.311A Abrasion of right elbow, initial encounter; W19.XXXA Unspecified fall, initial encounter; Y92.009 Unspecified place in unspecified non-institutional (private) residence as the place of occurrence of the external cause | CPT/HCPCS: A0425; A0427 ==

== ENCOUNTER 2023-07-17 11:49 | Outpatient (CLI) | payer MEDICARE, BC ==
--- NOTE | 2023-07-17 14:15 | XRAY Report ---
PROCEDURE: Foot 3+V LT (Weight Bearing) INDICATIONS: LEFT FOOT PAIN TECHNIQUE: 3 views of the foot were acquired. COMPARISON: None. FINDINGS: Bones: There is normal bony alignment with weight bearing. No fractures or dislocations. No suspic ious bony lesions. Plantar calcaneal enthesophyte. Amputation beyond the fifth metatarsal shaft, wit hout bony erosion. First MTP osteoarthritis. Soft tissues: No tibiotalar joint effusion. No suspicious soft tissue calcifications. IMPRESSION: Amputation beyond the fifth metatarsal shaft, without bony erosion. Reviewed by: Andrew Cardoso MD on 07/17/2023 2:13 PM PST Approved by: Andrew Cardoso MD on 07/17/2023 2:13 PM PST Station ID: [id number]
== END 2023-07-17 11:50 | disposition home or self-care (01) ==
LOC: DI 11:49
PROVIDERS: ATTEND Podiatrist
DX: Z89.422 Acquired absence of other left toe(s) (principal)

== ENCOUNTER 2023-09-09 07:34 | Outpatient (CLI) | payer MEDICARE, BC ==
--- NOTE | 2023-09-11 11:23 | MRI Report ---
PROCEDURE: Foot LT WO INDICATIONS: LT MID FOOT PAIN TECHNIQUE: Noncontrast sagittal T1 spin echo and T2 fast spin echo with fat saturation, long-axis T1 spin echo a nd T2 fast spin echo with fat saturation, short-axis proton density fast spin echo and T2 fast spin e cho with fat saturation through the forefoot. COMPARISON: Left foot MRI 05/29/2022 and radiographs 07/17/2023 FINDINGS: Image quality: Excellent. Bones and joints: Postsurgical changes are again seen from amputation of the 5th ray at the level of the distal metatarsal shaft. Small ossifications are seen along the plantar aspect of the 2nd and 3r d metatarsals and the area of prior fractures without definite osseous bridging. No acute osseous fra cture identified. Mild sagging of the midfoot is suspicious for pes planus. There are severe degenera tive changes of the naviculocuneiform and 1st through 3rd tarsometatarsal joints with cartilage loss, subchondral edema, subchondral cystic changes, and marginal osteophyte formation. Findings and mildl y progressed when compared to the MRI from 05/31/2022. Moderate degenerative changes are seen at the 1st metatarsophalangeal joint. Mild scattered degenerative changes at the interphalangeal joints of t he toes. Soft tissues: Intermediate signal intensity is seen within the Lisfranc ligament prior low-grade spr ains. The visualized plantar foot muscles demonstrate generalized fatty infiltration consistent with chronic denervation changes. Visualized flexor and extensor tendons appear intact, without tenosynov itis. Sagittal images demonstrate no evidence for plantar plate tears. 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 2.Chronic low-grade sprain of the Lisfranc ligament complex. 3.Severe degenerative changes at the 1st through 3rd tarsometatarsal joints and naviculocuneiform art iculations, which have mildly progressed when compared to the MRI from 05/31/2022. Mild sagging of th e midfoot is suspicious for pes planus. 4.Postsurgical changes from prior fixation of the 5th ray at the level of the distal metatarsal. 5.Moderate 1st metatarsophalangeal osteoarthrosis and scattered degenerative changes in the toes. Reviewed by: Chris Chavarria MD on 09/11/2023 11:22 AM PST Approved by: Chris Chavarria MD on 09/11/2023 11:22 AM PST Station ID: [id number]
== END 2023-09-09 07:35 | disposition home or self-care (01) ==
LOC: DI 07:34
PROVIDERS: ATTEND Podiatrist
DX: S92.322K Displaced fracture of second metatarsal bone, left foot, subsequent encounter for fracture with nonunion (principal); S92.332K Displaced fracture of third metatarsal bone, left foot, subsequent encounter for fracture with nonunion; S93.692D Other sprain of left foot, subsequent encounter; M19.072 Primary osteoarthritis, left ankle and foot

== ENCOUNTER 2024-03-09 23:33 | Outpatient (CLI) | payer MEDICARE, BC | END 2024-03-09 23:34 | disposition critical access hospital (66) | LOC: EMS 23:33 | DX: S01.81XA Laceration without foreign body of other part of head, initial encounter (principal); W18.09XA Striking against other object with subsequent fall, initial encounter; Y92.009 Unspecified place in unspecified non-institutional (private) residence as the place of occurrence of the external cause | CPT/HCPCS: A0425; A0429 ==

== ENCOUNTER 2024-03-10 00:01 | Emergency (ER) | payer MEDICARE, BC ==
--- NOTE | 2024-03-10 00:13 | ED Physician Documentation ---
History of Present Illness - Stated complaint Stated Complaint: GLF - History obtained from History obtained from: Patient, EMS - Additonal information Additional information: 73yF not on blood thinners presents Status post mechanical fall onto right face after tripping going to the bathroom. Denies loss of consciousness, denies other injuries. PD PAST MEDICAL HISTORY - Past Medical History Cardiovascular: Hypertension Respiratory: None Neuro: Seizure disorder Endocrine/Autoimmune: HyPOthyroidism GI: Cholelithiasis NEURO UROLOGIST: None : Chronic bladder infection HEENT: Chronic vision loss Psych: None Musculoskeletal: Osteoarthritis, Fibromyalgia, Chronic back pain, Other Derm: None - Past Surgical History Past Surgical History: Yes General: Cholecystectomy Ortho: Knee replacement, Spine surgery /NEURO UROLOGIST: Hysterectomy Neuro: Other HEENT: Cataracts, Other - Present Medications Home Medications: Ambulatory Orders Medication Instructions Recorded Confirmed Lamotrigine 400 mg PO BID 02/20/13 11/02/22 Levothyroxine [Synthroid] 150 mcg PO QDAC 02/20/13 11/02/22 Triamterene/Hydrochlorothiazid 1 each PO DAILY 02/20/13 11/02/22 [Triamterene-Hctz 37.5-25 mg Tb] HYDROcod/ACETAM 5/325 [[place] 5/325] 1 tablet PO BID #12 tablet 05/13/22 11/02/22 - Allergies Allergies/Adverse Reactions: Allergies Allergy/AdvReac Type Severity Reaction Status Date / Time Sulfa (Sulfonamide Allergy Itching Verified 05/14/22 16:20 Antibiotics) - Social History Does the pt smoke?: No Smoking Status: Never smoker Does the pt drink ETOH?: No Does the pt have substance abuse?: No - Immunizations Immunizations are current?: No - POLST Patient has POLST: No PD ED PE NORMAL - Vitals Vital signs reviewed: Yes - General General: Alert and oriented X 3, No acute distress, Well developed/nourished - HEENT HEENT: Atraumatic, PERRL, EOMI, Moist mucous membranes, Pharynx benign, Other (Right zygomatic arch tender to palpation. Right forehead with 2 cm laceration) - Neck Neck: No bony TTP, C-Spine cleared by NEXUS criteria - Cardiac Cardiac: RRR - Respiratory Respiratory: No respiratory distress, Clear bilaterally - Abdomen Abdomen: Non tender, Non distended - Back Back: No spinal TTP - Derm Derm: Normal color, Warm and dry - Neuro Eye Opening: Spontaneous Motor: Obeys Commands Verbal: Oriented GCS Score: 15 Results - Vitals Vitals: Oxygen O2 Source Room air Procedures - Laceration (location) Face right Length in cm: 2 Wound type: Linear Neurovascular status: Sensory intact, Motor intact, Vascular intact Tendon involvement: Tendon intact Anesthesia: Lidocaine 1% with epi Wound preparation: Irrigated copiously NS, Wound explored, To the base Skin layer closure: Nylon, Size #-0 - enter number (6), Sutures - enter # (3) Other: Patient tolerated well, No complications, Neurovascular intact, Dressing applied, Tetanus UTD PD Medical Decision Making - ED course ED course: 73-year-old woman presents status post mechanical fall from standing with head injury and facial injury but no loss of consciousness. Not on blood thinners. Plan is to obtain CT head and maxillofacial. IV Dilaudid provided with improvement in pain. Tetanus is up-to-date. Laceration repaired without difficulty. Return precautions given. Plan to follow-up outpatient with her primary care provider. Departure - Departure Clinical Impression: Laceration of face, Fall from standing Instructions: ED Laceration All Comments: You were seen in the emergency department for Fall and had stitches placed that need to be removed in 3 to 5 days. You can have this done either at your [facility] care provider's office or walk-in clinic. Please follow-up with your primary care provider and return to the emergency department if you have any new or worsening symptoms or other concerns.
[2024-03-10] MEDS: HYDROmorphone 0.5 MG/0.5 ML SYRINGE IVP STA (00:23)
--- NOTE | 2024-03-10 01:40 | CT Report ---
PROCEDURE: Head WO INDICATIONS: fall +HT no LOC no AC TECHNIQUE: Helical axial CT of the brain was obtained without contrast and reformatted in multiple p lanes. Radiation dose reduction was achieved using automated exposure control or adjustment of mA and /or kV according to patient size. COMPARISON: None FINDINGS: CSF spaces: Ventricles are appropriate in size and position. No hydrocephalus. Basal cisterns unre markable. Brain: No midline shift. No intracranial masses or hemorrhage. [place]-white matter interface is norm al. Prior resection of the left anterior temporal lobe Skull and face: Calvarium and skull base are unremarkable without suspicious lesion. Bilateral intr aocular lens replacements noted.. Old left pterional craniotomy. Sinuses: Visualized sinuses and mastoids are clear. IMPRESSION: No acute findings. No intracranial hemorrhage or mass effect. Prior left temporal lobe anterior resection. Reviewed by: Teodoro Pettit MD on 03/10/2024 12:38 AM PERLA Approved by: Teodoro Pettit MD on 03/10/2024 12:38 AM AKDT Station ID: [id number]
--- NOTE | 2024-03-10 01:47 | CT Report ---
PROCEDURE: Maxillofacial WO INDICATIONS: fall +facial pain R cheekbone TECHNIQUE: Helical axial CT of the facial structures and mandible were obtained without intravenous contrast and reformatted in multiple planes. Radiation dose reduction was achieved using automated e xposure control and adjustment of mA and/or kV according to patient size. COMPARISON: None. FINDINGS: Maxillofacial Bones: The zygomaticomaxillary complex is intact. The pterygoid plates and skull base are unremarkable. No evidence of fracture or lytic lesion. Mandible: The mandible is intact without fracture. Unremarkable temporomandibular articulation. Dentition: Unremarkable mandibular and maxillary dentition. Soft tissues: No maxillofacial soft tissue swelling. No radiopaque foreign bodies. Right frontal sc alp laceration with soft tissue air Orbits: The osseous orbits, globes and ocular muscles unremarkable. Sinuses and Mastoid: The visualized portion of the paranasal sinuses and mastoids are normal. No air -fluid levels or wall fractures. The nasal vault is unremarkable. IMPRESSION: Unremarkable maxillofacial CT without contrast. No fracture or foreign body. Right frontal scalp laceration with soft tissue air Reviewed by: Teodoro Pettit MD on 03/10/2024 12:45 AM PERLA Approved by: Teodoro Pettit MD on 03/10/2024 12:45 AM AKJAVIER Station ID: [id number]
--- NOTE | 2024-03-10 01:53 | CT Report ---
PROCEDURE: Cervical Spine WO INDICATIONS: fall from standing TECHNIQUE: Helical axial CT of the cervical spine was obtained without contrast and reformatted in m ultiple planes. Radiation dose reduction was achieved utilizing automated exposure control or adjus tment of mA and/or kV according to patient size. COMPARISON: None. FINDINGS: Bones: No fractures or dislocations. Visualized superior ribs are intact. Normal bone mineralizati on. Vertebral body height and alignment is maintained. No fracture or traumatic malalignment. Craniov ertebral relationships normal. Disc space narrowing and arthropathy in the lower cervical spine. Mode rate central stenosis C5-6 and C6-7 Soft tissues: Prevertebral soft tissues are normal in thickness. No paravertebral hematomas. No ap ical pneumothoraces. Thyroidectomy. Atherosclerotic vascular calcification noted in the aortic arch. IMPRESSION: No evidence of fracture or traumatic malalignment. 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
[2024-03-10] MEDS: ACETAMINOPHEN 325 MG TABLET PO STA (02:15)
[2024-03-10 03:20] VITALS: BP 141/93; O2SAT 9
== END 2024-03-10 03:29 | disposition home or self-care (01) ==
LOC: EDUNIT# → ED 00:01
DX: S09.90XA Unspecified injury of head, initial encounter (principal); S01.81XA Laceration without foreign body of other part of head, initial encounter; W18.09XA Striking against other object with subsequent fall, initial encounter; Y93.01 Activity, walking, marching and hiking; Y92.009 Unspecified place in unspecified non-institutional (private) residence as the place of occurrence of the external cause
CPT/HCPCS: 12011; 70450; 70486; 72125; 96374; 99284; A9270; J1170